=== PATIENT | male | born 1985 | race Hispanic/Latino ===

== ENCOUNTER 2019-03-01 17:17 | Inpatient (IN) | payer SELFPAY ==
[~2019-03-01] VITALS: Ht 175.3 cm; Wt 66.8 kg
[2019-03-01 18:00] LABS: ABG BASE EXCESS -0.9 (-2.0-2.0); ABG HCO3 23.8 MEQ/L (22.0-26.0); ABG O2 SATURATION 99.2 % (95.0-99.0); ABG PARTIAL PRESSURE CO2 39.8 mmHg (35.0-45.0); ABG PARTIAL PRESSURE O2 157.5 mmHg (75.0-100.0); ABG STANDARD HCO3 23.7 MEQ/L (22.0-26.0); ABG pH (ARTERIAL) 7.394 UNITS (7.350-7.450)
[2019-03-01] MEDS ORDERED: NS 1,000 ML IV ONE (18:00)
[2019-03-01 18:14] LABS: AMPHETAMINES LEVEL URINE NEGATIVE (NEGATIVE); BARBITURATES URINE NEGATIVE (NEGATIVE); BENZODIAZEPINES URINE NEGATIVE (NEGATIVE); CANNABINOIDS URINE NEGATIVE (NEGATIVE); COCAINE METABOLITE URINE NEGATIVE (NEGATIVE); METHADONE URINE NEGATIVE (NEGATIVE); OPIATES URINE NEGATIVE (NEGATIVE); PHENCYCLIDINE URINE NEGATIVE (NEGATIVE)
[2019-03-01 18:16] LABS: BASO # 0.1 10^3/uL (0.0-0.2); BASO % 0.9 % (0.0-1.0); EOS # 0.1 10^3/uL (0.0-0.5); EOS % 0.9 % (0.0-3.0); HEMATOCRIT 46.5 % (42.0-52.0); HEMOGLOBIN 14.7 g/dl (13.5-17.5); LYMPH # 2.3 10^3/uL (1.5-5.0); LYMPH % 39.2 % (24.0-44.0); MEAN CORPUSCULAR HEMOGLOBIN 26.3 pg (27.0-33.0); MEAN CORPUSCULAR HGB CONC 31.6 g/dl (32.0-36.5); MEAN CORPUSCULAR VOLUME 83.2 fl (80.0-96.0); MONO # 0.3 10^3/uL (0.0-0.8); MONO % 4.3 % (0.0-5.0); NEUTROPHILS # 3.1 10^3/uL (1.5-8.5); NEUTROPHILS % 54.4 % (36.0-66.0); PLATELET COUNT, AUTOMATED 197 10^3/uL (150-450); RED BLOOD COUNT 5.59 10^6/uL (4.30-6.10); WHITE BLOOD COUNT 5.8 10^3/uL (4.0-10.0)
--- NOTE | 2019-03-01 18:29 | ECGEPIP ---
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
--- NOTE | 2019-03-01 18:36 | REPVR ---
PROCEDURE INFORMATION: Exam: CT Head Without Contrast Exam date and time: 03/01/2019 5:44 PM Age: 33 years old Clinical history: Altered mental status/memory loss; Confusion or disorientation TECHNIQUE: Imaging protocol: Computed tomography of the head without contrast. Radiation optimization: All CT scans at this facility use at least one of these dose optimization techniques: automated exposure control; mA and/or kV adjustment per patient size (includes targeted exams where dose is matched to clinical indication); or iterative reconstruction. COMPARISON: No relevant prior studies available. FINDINGS: Brain: Normal. No hemorrhage. Unremarkable white matter. No mass effect. Ventricles: Normal. No ventriculomegaly. Bones/joints: Unremarkable. No acute fracture. Sinuses: Visualized sinuses are unremarkable. No fluid levels. Mastoid air cells: Visualized mastoid air cells are well aerated. Soft tissues: Unremarkable. IMPRESSION: No acute intracranial abnormality. Electronically signed by: Alejandro Turner On 03/01/2019 18:36:11 PM
[2019-03-01 18:50] LABS: ACETAMINOPHEN LEVEL < 2.0 UG/ML (10.0-30.0); ALBUMIN 4.1 GM/DL (3.2-5.2); ALT/SGPT 22 U/L (12-78); BILIRUBIN,DIRECT 0.2 MG/DL (0.0-0.2); BILIRUBIN,TOTAL 0.7 MG/DL (0.2-1.0); BLOOD UREA NITROGEN 16 MG/DL (7-18); CALCIUM LEVEL 9.1 MG/DL (8.5-10.1); CARBON DIOXIDE LEVEL 29 MEQ/L (21-32); CHLORIDE LEVEL 103 MEQ/L (98-107); CK-MB VALUE MASS 1.5 NG/ML (<3.6); CPK CREATINE PHOSPHOKINASE 629 U/L (39-308); CREATININE FOR GFR 1.32 MG/DL (0.70-1.30); ETHYL ALCOHOL (ETHANOL) < 0.003 % (0.000-0.010); GLOMERULAR FILTRATION RATE > 60.0 (>60); GLUCOSE, FASTING 83 MG/DL (70-100); MB/CK RELATIVE INDEX 0.24 (< OR =4); POTASSIUM SERUM 3.9 MEQ/L (3.5-5.1); SALICYLATE LEVEL < 1.7 MG/DL (5.0-30.0); SODIUM LEVEL 142 MEQ/L (136-145); THYROID STIMULATING HORMONE 0.473 uIU/ML (0.358-3.740); TOTAL PROTEIN 7.1 GM/DL (6.4-8.2); TROPONIN I < 0.02 NG/ML (< 0.10)
[2019-03-01 19:00] VITALS: O2SAT 100
[2019-03-01] MEDS ORDERED: PATIENT COMMENTS (19:31)
[2019-03-01] MEDS ORDERED: AMMONIA AROMATIC INHALANT (FLOOR STOCK) As Ordered ONE (19:51)
[2019-03-01 20:00] VITALS: O2SAT 100
[2019-03-01] MEDS ORDERED: NS 1,000 ML IV SCH (20:30)
[2019-03-01 20:40] VITALS: BP 129/77
[2019-03-01 20:43] LABS: BLOOD UREA NITROGEN 17 MG/DL (7-18); CALCIUM LEVEL 8.4 MG/DL (8.5-10.1); CARBON DIOXIDE LEVEL 27 MEQ/L (21-32); CHLORIDE LEVEL 108 MEQ/L (98-107); GLOMERULAR FILTRATION RATE > 60.0 (>60); GLUCOSE, FASTING 72 MG/DL (70-100); SODIUM LEVEL 143 MEQ/L (136-145)
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
[2019-03-01 22:00] VITALS: O2SAT 97
[2019-03-01] MEDS ORDERED: DEXTROSE 50% 50 ML SYRINGE IV PRN (22:45)
[2019-03-01] MEDS ORDERED: D5W/0.9% SODIUM CHLORIDE 1,000 ML IV SCH (22:45)
[2019-03-01] MEDS ORDERED: GLUCOSE 4 GM CHEW TABLET PO PRN (22:45)
[2019-03-01] MEDS ORDERED: GLUCAGON FOR INJ 1 MG VIAL (J1610) SC PRN (22:45)
[2019-03-01] MEDS: HEPARIN SOD (PORCINE) 5000 UNITS/ML VIAL SC SCH (22:52)
[2019-03-01 23:00] VITALS: O2SAT 99
[2019-03-01] MEDS: D5W/0.9% SODIUM CHLORIDE 1,000 ML IV SCH (23:00)
[2019-03-01 23:13] LABS: APPEARANCE, URINE HAZY (CLEAR); BACTERIA, URINE AUTO NEGATIVE (NEGATIVE); BILIRUBIN, URINE AUTO NEGATIVE (NEGATIVE); BLOOD, URINE BLOOD 2+ (NEGATIVE); COLOR, URINE YELLOW (YELLOW); GLUCOSE, URINE (UA) AUTO 1+ mg/dL (NEGATIVE); KETONE, URINE AUTO 2+ mg/dL (NEGATIVE); LEUKOCYTE ESTERASE, URINE AUTO NEGATIVE (NEGATIVE); MUCUS, URINE LARGE (NEGATIVE); NITRITE, URINE AUTO NEGATIVE (NEGATIVE); PROTEIN, URINE AUTO 2+ mg/dL (NEGATIVE); RBC, URINE AUTO 98 /HPF (0-3); SPECIFIC GRAVITY URINE AUTO 1.039 (1.002-1.035); SQUAMOUS EPITHELIAL CELL UR AU 0 /HPF (0-6); WBC, URINE AUTO 2 /HPF (0-3)
[2019-03-01 23:59] VITALS: BP 100/64
[2019-03-02] VITALS (8 sets, daily range): BP systolic 90–127; BP diastolic 51–79; O2SAT 97–98
[2019-03-02 00:18] LABS: LIPASE 116 U/L (73-393)
[2019-03-02] MEDS ORDERED: NALOXONE INJ 0.4 MG/1 ML VIAL (J2310) IV STA (02:37)
[2019-03-02] MEDS ORDERED: LORazepam 2 MG/ML VIAL (J2060) IV STA (03:08)
--- NOTE | 2019-03-02 03:49 | REPVR ---
PROCEDURE INFORMATION: Exam: XR Abdomen, 1 View Exam date and time: 03/01/2019 11:22 PM Age: 33 years old Clinical history: Other: Abdominal pain; Additional info: Abominal pain TECHNIQUE: Imaging protocol: XR of the abdomen. Views: Frontal supine view of the abdomen. 1 View. COMPARISON: No relevant prior studies available. FINDINGS: Gastrointestinal tract: Normal. No bowel dilation. Organs: No organomegaly, mass effect, or signs of free air. Bones/joints: Unremarkable. IMPRESSION: No acute findings. Electronically signed by: Aquiles Marino On 03/02/2019 03:48:36 AM
[2019-03-02 08:12] LABS: HEMATOCRIT 38.9 % (42.0-52.0); HEMOGLOBIN 12.4 g/dl (13.5-17.5); MEAN CORPUSCULAR HEMOGLOBIN 26.8 pg (27.0-33.0); MEAN CORPUSCULAR HGB CONC 31.9 g/dl (32.0-36.5); MEAN CORPUSCULAR VOLUME 84.2 fl (80.0-96.0); PLATELET COUNT, AUTOMATED 171 10^3/uL (150-450); RED BLOOD COUNT 4.62 10^6/uL (4.30-6.10); WHITE BLOOD COUNT 7.1 10^3/uL (4.0-10.0)
[2019-03-02 08:29] LABS: BLOOD UREA NITROGEN 16 MG/DL (7-18); CALCIUM LEVEL 7.9 MG/DL (8.5-10.1); CARBON DIOXIDE LEVEL 28 MEQ/L (21-32); CHLORIDE LEVEL 110 MEQ/L (98-107); CREATININE FOR GFR 1.02 MG/DL (0.70-1.30); GLOMERULAR FILTRATION RATE > 60.0 (>60); GLUCOSE, FASTING 106 MG/DL (70-100); MAGNESIUM LEVEL 2.3 MG/DL (1.8-2.4); POTASSIUM SERUM 3.6 MEQ/L (3.5-5.1); SODIUM LEVEL 143 MEQ/L (136-145)
[2019-03-02] MEDS: D5W/0.9% SODIUM CHLORIDE 1,000 ML IV SCH (08:59)
[2019-03-02] MEDS: HEPARIN SOD (PORCINE) 5000 UNITS/ML VIAL SC SCH ×2 (09:00→21:00)
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
--- NOTE | 2019-03-02 11:47 | REP ---
SHOULDER ONE VIEW: 03/02/2019. Clinical history: Shoulder pain. Findings: Single view with portable technique compared to yesterday's portable chest shows mild AC and glenohumeral joint degenerative change. There is no fracture of the clavicle, ribs, scapula or humeral head. No gross subluxation or dislocation of the humeral head from the glenoid. Adjacent soft tissues without calcification. Impression: 1. Minor degenerative changes AC and glenohumeral joints without visible fracture on this image of the right shoulder. Electronically Signed by Stu Tenorio MD 03/02/2019 11:39 A
--- NOTE | 2019-03-02 11:50 | REP ---
AP LATERAL PORTABLE RIGHT FOOT: 03/02/2019. Clinical history: Pain. Findings: Two-view show no visible or displaced fracture of the talus or calcaneus. Their articulations with the tarsal bones, tarsal bones themselves and metatarsals show no fracture or joint abnormality. MTP and IP joints are intact. Impression: 1. Limited two-view portable right foot, no visible fracture. Electronically Signed by Stu Tenorio MD 03/02/2019 11:42 A
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
[2019-03-02] MEDS ORDERED: ACETAMINOPHEN 500 MG TAB PO PRN (12:45)
[2019-03-02] MEDS: haloperidoL 5 MG TAB PO SCH (21:00)
[2019-03-03 04:00] VITALS: BP 89/53
[2019-03-03 05:41] LABS: HEMATOCRIT 37.3 % (42.0-52.0); HEMOGLOBIN 12.1 g/dl (13.5-17.5); MEAN CORPUSCULAR HEMOGLOBIN 26.7 pg (27.0-33.0); MEAN CORPUSCULAR HGB CONC 32.4 g/dl (32.0-36.5); MEAN CORPUSCULAR VOLUME 82.3 fl (80.0-96.0); PLATELET COUNT, AUTOMATED 158 10^3/uL (150-450); RED BLOOD COUNT 4.53 10^6/uL (4.30-6.10); WHITE BLOOD COUNT 4.3 10^3/uL (4.0-10.0)
[2019-03-03 05:55] LABS: BLOOD UREA NITROGEN 10 MG/DL (7-18); CALCIUM LEVEL 8.4 MG/DL (8.5-10.1); CARBON DIOXIDE LEVEL 29 MEQ/L (21-32); CHLORIDE LEVEL 110 MEQ/L (98-107); CREATININE FOR GFR 0.87 MG/DL (0.70-1.30); GLOMERULAR FILTRATION RATE > 60.0 (>60); GLUCOSE, FASTING 84 MG/DL (70-100); MAGNESIUM LEVEL 2.2 MG/DL (1.8-2.4); SODIUM LEVEL 143 MEQ/L (136-145)
[2019-03-03] MEDS ORDERED: D5W/0.9% SODIUM CHLORIDE 1,000 ML IV SCH (06:00)
[2019-03-03 08:00] VITALS: BP 82/52
[2019-03-03] MEDS: haloperidoL 5 MG TAB PO SCH (09:00)
[2019-03-03] MEDS: HEPARIN SOD (PORCINE) 5000 UNITS/ML VIAL SC SCH (09:00)
[2019-03-03 12:00] VITALS: BP 108/65
[2019-03-03] MEDS ORDERED: RISP1TAB42 PO (14:55)
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
== END 2019-03-03 18:24 | DRG 861 ==
LOC: EDBD → M ED 17:17 → M ED INP 19:07 → M PCU 20:40
PROVIDERS: ADMIT Internal Medicine; ATTEND Student in an Organized Health Care Education/Training Program
DX: R41.82 Altered mental status, unspecified (principal); N17.9 Acute kidney failure, unspecified; Z88.0 Allergy status to penicillin; Z88.8 Allergy status to other drugs, medicaments and biological substances; Z91.030 Bee allergy status; F22 Delusional disorders; F45.1 Undifferentiated somatoform disorder

== ENCOUNTER 2019-03-03 13:03 | Inpatient (IN) | payer OTHER, SELFPAY ==
[~2019-03-03 13:03] MED LIST: PATIENT COMMENTS
[2019-03-03] MEDS ORDERED: ACETAMINOPHEN TAB 650MG DOSE (2X325MG) PO PRN (13:15)
[2019-03-03] MEDS ORDERED: MOM 30ML SUSPENSION UDC PO PRN (13:15)
[2019-03-03] MEDS ORDERED: OLANZapine ORAL DISINTEGRATING TAB 5MG PO PRN (13:15)
[2019-03-03] MEDS ORDERED: RISP1TAB42 PO (14:55)
[2019-03-03 18:42] VITALS: BP 124/84
--- NOTE | 2019-03-04 10:55 | MHHPEPDOC ---
[facility] History & Physical History and Physical DATE OF ADMISSION: Mar 03, 2019 at 18:36 New Patient Zeferino Owen MRN: N/A Date of : N/A Date of Service: 03/04/2019 Chief Complaint Unknown History of Present Illness The patient a 33-year-old man with a history of reported psychotic illness presents bizarre and paranoid transferred from a medical floor after medical workup revealed no signs. When he had come to our unit he was catatonic, frozen and unable to move. He continued to remain still even though my attempts at waking him revealed that he was able to respond and have eye movement as well as was breathing, he remained frozen in place with waxy flexibility. The information below is extracted from previous notes and extrapolated an update as appropriate Review Of Systems Unable to ascertain due to patient mental status. Past Psychiatric History Reportedly follows at the [facility] for psychotic illness unclear if any history of suicide attempts. Allergies Please see below. Family Psychiatric History Has reported no previous history that I could ascertain. 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 Substance Abuse History Unclear history of substance use. Patient's urinary tox screen upon presentation was negative for any substances. Medical History Unclear due to patient's mental status. Mental Status Examination General: Poor hygiene. Speech: Mute. Thought processes: Unknown. MSK: Waxy flexibility. Thought content: Unknown. Abstract reasoning, and computation: Unknown. Description of associations: Unknown. Description of abnormal or psychotic thoughts: Unknown. Judgment: Impaired. Insight: Impaired. Orientation: Appears to respond vaguely to stimuli. Cognition: Unknown. Recent and remote memory: Unknown. Attention span and concentration: Unknown. Fund of knowledge: Unknown. Mood: "..." Affect: Unknown. Diagnoses Unspecified psychotic disorder. Catatonia. Assessment and Plan Catatonia: Initial dose of 0.25 mg IM of Ativan ineffective. We will try 1 mg IM to reduce catatonic symptoms. Unspecified psychotic disorder: We will continue to monitor and attempt [facility] Disposition The patient will need an admission likely lasting longer than 2 midnights for his psychotic disorder that is severely impairing. Problem List 1. Altered thoughts. Initial Treatment Plan 1. Patient was admitted on a 9.39 legal status. 2. Complete history was obtained. 3. With patients permission, family will be contacted and database will be e xpanded. 4. Patients medication regimen will be reviewed and changed accordingly. 5. Patient will be provided with protected environment. 6. Patient will be treated with individual, group, and milieu therapies. 7. Patient will receive supportive psych-education. 8. Discharge planning will commence immediately. 9. Outpatient follow-up treatment will be strongly recommended. 10. The initial treatment plan will focus initially on: Estimated Length Of Stay 5 days. Time Spent 70 minutes. Sunday Vital Signs Vital Signs Date Time Temp Pulse Resp B/P (MAP) Pulse Ox O2 Delivery O2 Flow Rate FiO2 03/03/19 18:42 98.7 74 16 124/84 (97) 100 Room Air Medications Scheduled Risperidone (Risperdal) 1 Mg Tablet, 1 MG PO QPM Allergies Coded Allergies: Penicillins (Verified Allergy, Unknown, 03/02/19) bee venom protein (honey bee) (Verified Allergy, Unknown, 03/02/19) clindamycin (Verified Allergy, Unknown, 03/02/19) RADHA BOWMAN DO Mar 04, 2019 10:55
[2019-03-04] MEDS ORDERED: LORazepam 2 MG/ML VIAL (J2060) IM ONE (11:00)
--- NOTE | 2019-03-04 14:29 | HPEPDOC ---
[facility] Medical History & Physical Date of Admission Mar 04, 2019 Date of Service: Mar 04, 2019 History and Physical CHIEF COMPLAINT: Admitted to inpatient mental health unit HISTORY OF PRESENT ILLNESS: 33-year-old male admitted to inpatient mental health unit for unspecified psychotic disorder. Patient was seen in his room, does not wish to speak with me, does not wish to be examined. Information obtained from staff, patient admitted for unspecified psychotic disorder, has been in his room, without complaints. PAST MEDICAL HISTORY: 1. Unable to obtain PAST SURGICAL HISTORY: 1. Unable to obtain SOCIAL HISTORY: Unable to obtain FAMILY HISTORY: Unable to obtain ALLERGIES: Please see below. REVIEW OF SYSTEMS: Unable to obtain due to patient compliance HOME MEDICATIONS: Please see below. PHYSICAL EXAMINATION: Patient refused examination LABORATORY DATA: See below. ASSESSMENT: 33-year-old male admitted to inpatient mental health unit for unspecified psychotic disorder. PLAN: 1. Unspecified psychotic disorder. Management as per primary team Patient does not wish to discuss anything with me at this time, if hospitalist service is needed, please reconsult. Thank you. Vital Signs Vital Signs Date Time Temp Pulse Resp B/P (MAP) Pulse Ox O2 Delivery O2 Flow Rate FiO2 03/03/19 18:42 98.7 74 16 124/84 (97) 100 Room Air Home Medications Scheduled Risperidone (Risperdal) 1 Mg Tablet, 1 MG PO QPM Allergies Coded Allergies: Penicillins (Verified Allergy, Unknown, 03/02/19) bee venom protein (honey bee) (Verified Allergy, Unknown, 03/02/19) clindamycin (Verified Allergy, Unknown, 03/02/19) A-FIB/CHADSVASC A-FIB History Current/History of A-Fib/PAF?: No VENU KERN MD Mar 04, 2019 14:29
[2019-03-04 16:27] VITALS: BP 90/56
--- NOTE | 2019-03-05 10:04 | MHIPNPDOC ---
[facility] Progress Note Progress Note Inpatient Progress Note Zeferino Owen MRN: N/A Date of : N/A Date of Service: 03/05/2019 History of Present Illness The patient a 33-year-old man with a history of reported psychotic illness presents bizarre and paranoid transferred from a medical floor after medical workup revealed no signs. When he had come to our unit he was catatonic, frozen and unable to move. He continued to remain still even though my attempts at waking him revealed that he was able to respond and have eye movement as well as was breathing, he remained frozen in place with waxy flexibility. The information below is extracted from previous notes and extrapolated an update as appropriate Interval History The patient after given the Ativan last night have become more talkative, however, he has been noted to be fairly delusional, bizarre and tangential. I tried to meet with her multiple times, but it's difficult to get any information out of him as he continues to make bizarre and unusual statements frequently without any meaningful information. He continues to ask for junk food but has not been violent or behaviorally disruptive. He [facility] as per protocol. The patient still remains isolated to his room, bizarre, grandiose, has not attended groups regularly. Review Of Systems Unable to obtain due to patient's mental status exam. Psychotherapy None on this visit. Vital Signs Reviewed. Mental Status Examination General: Poor hygiene Speech: Pressured Thought processes: Tangential MSK: Some restlessness Thought content: Paranoid Abstract reasoning, and computation: Impaired Description of associations: Impaired Description of abnormal or psychotic thoughts: Unclear due patient's mental s tatus exam Judgment: Poor Insight: Poor Orientation: Alert and orientated 3 Cognition: Grossly normal Recent and remote memory: Intact Attention span and concentration: Impaired secondary to thought process Fund of knowledge: Adequate Mood: "fine" Affect: Elated with an elevated range Diagnoses Unspecified psychotic disorder Catatonia, resolving Assessment and Plan Catatonia: No further treatment. Symptoms appear to resolve. Unspecified psychotic disorder: Still attempting to gain information from [facility] in order to determine his current medication regiment and determine if he needs to be continued on. Disposition The patient will need a further inpatient admission due to severely impairing psychosis that puts him in danger of self-harm due to his gravely disabled state. Time Spent 15 minutes [id number] Sunday Vital Signs Vital Signs Date Time Temp Pulse Resp B/P (MAP) Pulse Ox O2 Delivery O2 Flow Rate FiO2 03/04/19 16:27 98.3 58 15 90/56 (67) 03/03/19 18:42 100 Room Air Current Medications Current Medications Medications (Trade) Dose Ordered Sig/Karolina Route PRN Reason Start Time Stop Time Status Last Admin Dose Admin Acetaminophen (Tylenol Tab) 650 mg Q6HP PRN PO HEADACHE or DISCOMFORT 03/03/19 13:15 Magnesium Hydroxide (Milk Of Magnesia) 30 ml DAILYPRN PRN PO CONSTIPATION 03/03/19 13:15 Olanzapine (ZyPREXA ZYDIS) 5 mg Q4HP PRN PO AGITATION 03/03/19 13:15 Allergies Coded Allergies: Penicillins (Verified Allergy, Unknown, 03/02/19) bee venom protein (honey bee) (Verified Allergy, Unknown, 03/02/19) clindamycin (Verified Allergy, Unknown, 03/02/19) RADHA BOWMAN DO Mar 05, 2019 10:04
[2019-03-05 16:17] VITALS: BP_SYST 90; BP_DIAS 15; BP_DIAS 56
--- NOTE | 2019-03-06 10:46 | MHIPNPDOC ---
[facility] Progress Note Progress Note Inpatient Progress Note Zeferino Owen MRN: N/A Date of : N/A Date of Service: 03/06/2019 History of Present Illness The patient a 33-year-old man with a history of reported psychotic illness presents bizarre and paranoid transferred from a medical floor after medical workup revealed no signs. When he had come to our unit he was catatonic, frozen and unable to move. He continued to remain still even though my attempts at waking him revealed that he was able to respond and have eye movement as well as was breathing, he remained frozen in place with waxy flexibility. The information below is extracted from previous notes and extrapolated an update as appropriate Interval History The patient is met wet today; however, he is still bizarre, paranoid and unusually delusional, unable to contribute any meaningful information and in discussion. He remains isolative to his room making grandiose statements, at times freezing up but at times appears to be ignoring different staff members. He has had no major behavioral problems, but is increasingly more demanding. Review Of Systems Unable to ascertain due to mental status. Psychotherapy None on this visit. Vital Signs Reviewed. Mental Status Examination General: Poor hygiene Speech: Pressured Thought processes: Tangential MSK: Some restlessness Thought content: Paranoid Abstract reasoning, and computation: Impaired Description of associations: Impaired Description of abnormal or psychotic thoughts: Unclear due patient's mental status exam Judgment: Poor Insight: Poor Orientation: Alert and orientated 3 Cognition: Grossly normal Recent and remote memory: Intact Attention span and concentration: Impaired secondary to thought process Fund of knowledge: Adequate Mood: "fine" Affect: Elated with an elevated range Diagnoses Unspecified psychotic disorder Catatonia, resolving Assessment and Plan Catatonia: No further treatment. Symptoms appear to resolve. Unspecified psychotic disorder: To start Zyprexa 5 mg nightly. Disposition The patient will need a further inpatient admission and possible transfer to the [facility] for continued care of his psychosis that is severely impairing, making him a danger to himself due to his gravely disabled state. Time Spent 10 minutes [id number]. Vital Signs Vital Signs Date Time Temp Pulse Resp B/P (MAP) Pulse Ox O2 Delivery O2 Flow Rate FiO2 03/05/19 16:17 98.1 58 15 90/56 (67) 03/05/19 09:45 Room Air 03/03/19 18:42 100 Current Medications Current Medications Medications (Trade) Dose Ordered Sig/Karolina Route PRN Reason Start Time Stop Time Status Last Admin Dose Admin Acetaminophen (Tylenol Tab) 650 mg Q6HP PRN PO HEADACHE or DISCOMFORT 03/03/19 13:15 Magnesium Hydroxide (Milk Of Magnesia) 30 ml DAILYPRN PRN PO CONSTIPATION 03/03/19 13:15 Olanzapine (ZyPREXA ZYDIS) 5 mg Q4HP PRN PO AGITATION 03/03/19 13:15 Allergies Coded Allergies: Penicillins (Verified Allergy, Unknown, 03/02/19) bee venom protein (honey bee) (Verified Allergy, Unknown, 03/02/19) clindamycin (Verified Allergy, Unknown, 03/02/19) RADHA BOWMAN DO Mar 06, 2019 10:46
--- NOTE | 2019-03-06 14:54 | IPNPDOC ---
Subjective Date Seen The patient was seen on 03/06/19. Subjective Chief Complaint/HPI Called in for medical clearance as patient being transferred to [facility]. Patient examined at bedside in his room, he offers no new complaints at the present time General: Denies: ROS Unobtainable, Chills, Night Sweats, Fatigue, Malaise, Normal Appetite, Other Symptoms Constitutional: Denies: Chills, Fever, Malaise, Night Sweats, Weakness, Fatigue, Weight Loss, Lethargy, Other Eyes: Denies: Pain, Vision change, Conjunctivae inflammation, Eyelid inflammation, Redness, Other ENT: Denies: Head Aches, Ear Pain, Dysphagia, Sinus Congestion, Post Nasal Drip, Sore Throat, Epistaxis, Other Symptoms Skin: Denies: Rash, Lesions, Jaundice, Bruising, Itching, Dry, Breakdown, Nail Changes, Other Pulmonary: Denies: Dyspnea, Cough, Pleuritic Chest Pain, Other Symptoms Cardiovascular: Denies: Chest Pain, Palpitations, Orthopnea, Paroxysmal Noc. Dyspnea, Edema, Lt Headedness, Other Symptoms Gastrointestinal: Denies: Nausea, Vomiting, Abdominal Pain, Diarrhea, Constipation, Melena, Hematochezia, Other Symptoms Genitourinary: Denies: Dysuria, Frequency, Incontinence, Hematuria, Retention, Other Symptoms Hematologic: Denies: Bruising, Bleeding Excessively, Petecchia, Purpura, Enlarged Lymph Nodes, Other Hematologic Endocrine: Denies: Polydipsia, Polyphagia, Polyuria, Heat Intolerance, Cold Intolerance, Other Endocrine Sx Musculoskeletal: Denies: Neck Pain, Back Pain, Shoulder Pain, Arm Pain, Hand Pain, Leg Pain, Foot Pain, Joint Pain, Muscle Pain, Spasms, Other Symptoms Neurological: Denies: Weakness, Numbness, Incoordination, Change in speech, Confusion, Seizures, Other Symptoms Psych: Denies: Mood Normal, Anxiety, Depression, Memory Issues, Thoughts of Self Harm, Anger, Thoughts of Harming Other, Other Psych Objective Physical Examination General Exam: Positive: Alert, Cooperative Eye Exam: Positive: PERRLA, Conjunctiva & lids normal ENT Exam: Positive: Atraumatic, Mucous membr. moist/pink Neck Exam: Positive: Supple Chest Exam: Positive: Normal air movement Heart Exam: Positive: Rate Normal, Normal S1, Normal S2 Abdomen Exam: Positive: Normal bowel sounds, Soft Skin Exam: Positive: Nl turgor and temperature Neuro Exam: Positive: Strength at 5/5 X4 ext, Sensation Intact Psych Exam: Positive: Mood NL, Oriented x 3 Assessment /Plan Problems (1) Psychosis Status: Chronic Problem Text: Patient examined at bedside in his room. Is 30 years old -[place] male with no past medical history was admitted to inpatient psych unit with psychotic illness, and is being transferred to [facility] today. Were called in for medical clearance, patient offers no medical complaints at the present time, physical examination essentially within normal limits Patient is medically stable and cleared for discharge to [facility] Please call if there is any further questions regarding patient's care. Plan/VTE VTE Prophylaxis Ordered?: Yes VS, I&O, 24H, Fishbone Vital Signs/I&O Vital Signs Date Time Temp Pulse Resp B/P (MAP) Pulse Ox O2 Delivery O2 Flow Rate FiO2 03/06/19 14:37 Room Air 03/05/19 16:17 98.1 58 15 90/56 (67) 03/03/19 18:42 100 SAMI ROSADO MD Mar 06, 2019 14:54
[2019-03-06] MEDS ORDERED: OLANZapine ORAL DISINTEGRATING TAB 5MG PO SCH (21:00)
--- NOTE | 2019-03-06 23:21 | ECGEPIP ---
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 Electronically Signed on 03-06-2019 23:21:28 EST by Gordon Cuenca
--- NOTE | 2019-03-07 10:59 | MHIPNPDOC ---
[facility] Progress Note Progress Note DATE OF SERVICE: 03/07/19 HISTORY: . VITAL SIGNS: See below. NEW TEST RESULTS: . CURRENT MEDICATIONS: See below. MENTAL STATUS EXAMINATION: Patient is a -year old male, who is . Speech: Is . Language skills are . Thought processes including: . Thought content: . Abstract reasoning, and computation: . Description of assoc iations: . Description of abnormal or psychotic thoughts: . Judgment: . Insight: [very limited, good, fair. poor]. Orientation: . Recent and remote memory: . Attention span and concentration: . Language: . Fund of knowledge: . Mood: . Affect: . DIAGNOSES: 1. . 2. . 3. . ASSESSMENT: MANAGEMENT PLAN: . TIME SPENT: minutes. Vital Signs Vital Signs Date Time Temp Pulse Resp B/P (MAP) Pulse Ox O2 Delivery O2 Flow Rate FiO2 03/06/19 14:37 Room Air 03/05/19 16:17 98.1 58 15 90/56 (67) 03/03/19 18:42 100 Current Medications Current Medications Medications (Trade) Dose Ordered Sig/Karolina Route PRN Reason Start Time Stop Time Status Last Admin Dose Admin Acetaminophen (Tylenol Tab) 650 mg Q6HP PRN PO HEADACHE or DISCOMFORT 03/03/19 13:15 Magnesium Hydroxide (Milk Of Magnesia) 30 ml DAILYPRN PRN PO CONSTIPATION 03/03/19 13:15 Olanzapine (ZyPREXA ZYDIS) 5 mg Q4HP PRN PO AGITATION 03/03/19 13:15 Olanzapine (ZyPREXA ZYDIS) 5 mg QHS PO 03/06/19 21:00 Allergies Coded Allergies: Penicillins (Verified Allergy, Unknown, 03/02/19) bee venom protein (honey bee) (Verified Allergy, Unknown, 03/02/19) clindamycin (Verified Allergy, Unknown, 03/02/19) RADHA BOWMAN DO Mar 07, 2019 10:59
--- NOTE | 2019-03-07 13:29 | MHDSPDOC ---
[facility] Discharge Summary Discharge Summary DATE OF ADMISSION: Mar 03, 2019 at 18:36 DATE OF DISCHARGE: 03/07/19 Discharge Zeferino Owen MRN: [id number] Date of : N/A Date of Service: 03/07/2019 Diagnoses Unspecified psychotic disorder Catatonia, resolving History of Present Illness The patient a 33-year-old man with a history of reported psychotic illness presents bizarre and paranoid transferred from a medical floor after medical workup revealed no signs. When he had come to our unit he was catatonic, frozen and unable to move. He continued to remain still even though my attempts at waking him revealed that he was able to respond and have eye movement as well as was breathing, he remained frozen in place with waxy flexibility. The information below is extracted from previous notes and extrapolated an update as appropriate Consultants Involved Hospitalist/PCP screening Treatment and Progress On The Unit The patient was admitted to the unit where he was initially observed, noted to be somewhat catatonic given a low dose of Ativan with positive results. He was noted to be fairly bizarre, delusional, making unusual and grandiose claims. He resisted any psychiatric treatment, remained isolative to his room, demanding at other times, offered Zyprexa, but refused it. However, [facility] and thus [facility] as the patient had signed a agreement that he would be transferred there if needed. Discharge Assessment 33-year-old man with a history of reported psychotic illness who presents in a likely psychotic state, [facility]. Mental Status Examination General: Poor hygiene Speech: Pressured Thought processes: Tangential MSK: Some restlessness Thought content: Paranoid Abstract reasoning, and computation: Impaired Description of associations: Impaired Description of abnormal or psychotic thoughts: Unclear due patient's mental status exam Judgment: Poor Insight: Poor Orientation: Alert and orientated 3 Cognition: Grossly normal Recent and remote memory: Intact Attention span and concentration: Impaired secondary to thought process Fund of knowledge: Adequate Mood: "fine" Affect: Elated with an elevated range Follow Up The social work team worked during the predischarge meeting in order to evaluate for further issues of lethality address them fully before discharge. They worked on safety planning with the patient's family members in order to ensure that the patient will have a safe and effective discharge. Time Spent The amount of time spent in the coordination of care for this patient was approximately 60 minutes. Sunday Vital Signs/I&Os Vital Signs Date Time Temp Pulse Resp B/P (MAP) Pulse Ox O2 Delivery O2 Flow Rate FiO2 03/06/19 14:37 Room Air 03/05/19 16:17 98.1 58 15 90/56 (67) 03/03/19 18:42 100 Medications No Active Prescriptions or Reported Meds Allergies Coded Allergies: Penicillins (Verified Allergy, Unknown, 03/02/19) bee venom protein (honey bee) (Verified Allergy, Unknown, 03/02/19) clindamycin (Verified Allergy, Unknown, 03/02/19) RADHA BOWMAN DO Mar 07, 2019 13:29
== END 2019-03-07 15:12 | DRG 885 ==
LOC: M PSY 18:36 → EDBD 18:36
PROVIDERS: ADMIT Psychiatry & Neurology Addiction Medicine; ATTEND Psychiatry & Neurology Addiction Medicine
DX: F29 Unspecified psychosis not due to a substance or known physiological condition (principal); F20.2 Catatonic schizophrenia; Z79.899 Other long term (current) drug therapy; Z88.0 Allergy status to penicillin; Z91.030 Bee allergy status; Z88.1 Allergy status to other antibiotic agents